=== PATIENT | female | born 1955 | race Caucasian/White ===

== ENCOUNTER 2016-07-18 11:01 | Emergency (ER) | payer OTHER ==
[2016-07-18 11:09] VITALS: PULSE 72; RESP 16; TEMP 97.7; O2SAT 96
--- NOTE | 2016-07-18 12:03 | UCPHY ---
H & P Patient Type: Established Chief Complaint Nursing Narrative: LACERATION TO LEFT MIDDLE FINGER WHEN TRYING TO CATCH A PIECE OF GLASS HPI/ROS: CHIEF COMPLAINT: Finger laceration HISTORY OF PRESENT ILLNESS: This patient is an otherwise healthy 61 year old right-hand dominant woman presenting with acute laceration to the third digit of her left hand. A glass fell on her counter and when she tried to catch it, a shard of glass cut the dorsal aspect of the index finger, over the PIP joint. There was no excessive bleeding. She is able to flex and extend her finger. Denies paresthesia or weakness. Tetanus is not up to date. REVIEW OF SYSTEMS: A ten point review of systems was performed and is negative with the exception of the items mentioned in the HPI. Source: Patient Exam Limitations: No limitations - Personal History Current Tetanus Diphtheria and Acellular Pertussis (TDAP): Unsure - Medical/Surgical History Hx Asthma: No Hx Chronic Respiratory Disease: No Hx Diabetes: No Hx Cardiac Disease: No Hx Renal Disease: No Hx Cirrhosis: No Hx Alcoholism: No Hx HIV/AIDS: No Hx Splenectomy or Spleen Trauma: No Other PMH: HYPOTHYROIDISM - Family History Significant Family History: No pertinent family hx - Social History Smoking Status: Never smoked Alcohol Use: None Drug Use: None Additional Social History: She works as a english teacher. She is . - Physical Exam Exam: General Appearance: Alert. Vital signs reviewed. Repeat BP 112/70 (BP noted to be low at triage). Focused physical exam was performed. Respiratory: Lungs are clear to auscultation; no wheezes, rales, or rhonchi. Cardiovascular: Regular rate and rhythm; no murmur, rub, or gallop. Skin: 1cm laceration over the PIP joint of the third digit on the left hand. Extremities: Normal flexion and extension of the left index finger, no tendon involvement on exam. Sensation normal to light touch over Left IF. Normal two point discrimination Left IF. Pulses: 2+ radial pulses. Neurological: Alert and oriented. Moving all four extremities easily and equally. No paresthesia or weakness distal to the laceration. Psychiatric: Normal affect. Constitutional: Initial Vital Signs Temperature (C) 36.5 C 07/18/16 11:04 Heart Rate 72 07/18/16 11:04 Respiratory Rate 16 07/18/16 11:04 Blood Pressure 78/30 L 07/18/16 11:04 O2 Sat (%) 96 07/18/16 11:04 O2 Delivery Mode Room Air Allergies/Adverse Reactions: No Known Allergies Allergy (Unverified 07/18/16 11:09) Home Medications: Medication Instructions Recorded Levothyroxine 11/28/15 Medical Decision Making Procedures: Procedure: Laceration repair. The 1cm laceration on the left index finger was anesthetized using lidocaine. The wound was irrigated, draped and explored to its base with a gloved finger. There were no deep structures involved. There is no tendon injury. No foreign body palpable. The wound was repaired with 5 5-0 Nylon sutures. The wound repair was simple. ED Course/Re-evaluation: Patient presents with laceration to the left index finger. There is normal tendon function on exam. Tetanus is not up to date and will be updated. Laceration will be anesthetized, cleaned, and repaired. No evidence of tendon, nerve, vascular, or bone damage. No dislocation. Differential Diagnosis: I considered a differential diagnosis that included but is not limited to laceration, nerve injury, vascular injury, tendon injury, dislocation, and fracture. - Data Points Medications Given: Discontinued Medications Diphtheria/Tetanus/Acell Pertussis (Boostrix) 0.5 ml IM .ONCE ONE Stop: 07/18/16 12:34 Last Admin: 07/18/16 12:53 Dose: 0.5 ml Departure - Departure Disposition: Home, Routine, Self-Care Clinical Impression: Finger laceration Qualifiers: Encounter type: initial encounter Qualified Code(s): S61.219A - Laceration without foreign body of unspecified finger without damage to nail, initial encounter Condition: Good Instructions: Care For Your Stitches (ED), Stitches Removal (ED), Finger Laceration (ED) Additional Instructions: Sutures out in 10 days. Return to the Emergency Department for fever, redness, discharge from wound, increasing pain or other worsening of condition. Referrals: Armand Gomez MD [Primary Care Provider] - As per Instructions - PQRS PQRS Measurement: Does not apply. Report Scribed for: Tram Osborne Report Scribed by: Estella Edwards Date of Report: 07/18/16 Time of Report: 12:34 Physician Review and Approval Statement: 07/18/16 16:13 Portions of this note were transcribed by the medical center representative. I, Dr. Tram Osborne, personally performed the history, physical exam, and medical decision- making; and confirmed the accuracy of the information in the transcribed note.
[2016-07-18 12:05] VITALS: BP 112/71
[2016-07-18] MEDS ORDERED: TDAP ADULT 0.5 ML INJ (BOOSTRIX) IM ONE (12:33)
== END 2016-07-18 13:17 | disposition home or self-care (01) ==
LOC: CED 11:01
PROC: 0HQGXZZ Repair Left Hand Skin, External Approach (ICD-10-PCS; principal; 2016-07-18)
DX: S61.211A Laceration without foreign body of left index finger without damage to nail, initial encounter (principal); W25.XXXA Contact with sharp glass, initial encounter
CPT/HCPCS: G0463-PO